=== PATIENT | female | born 1990 | race Caucasian/White ===

== ENCOUNTER 2019-10-12 17:24 | Emergency (ER) | payer MEDICAID, OTHER ==
[~2019-10-12] VITALS: Ht 170.2 cm; Wt 76.9 kg
--- NOTE | 2019-10-12 17:50 | NUR ---
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
--- NOTE | 2019-10-12 18:10 | NUR ---
THIS IS A 28 YO FEMALE COMING IN FOR ABD CRAMPING, SCANT SPOTTING, AND NAUSEA. PATIENT FOUND OUT SHE WAS "A COUPLE WEEKS AGO", MADE APPT AT ENTER SCHEDULED FOR FRIDAY. PATIENT STATES "I HAVE AN IUD IN PLACE, IT'S BEEN THERE FOR 3 YEARS, AND I HAVEN'T HAD A PERIOD FOR 1.5 YEARS". PATIENT C/O RLQ ABD PAIN, 03/15 STATES "IT FEELS LIKE PERIOD CRAMPS". PATIENT DENIES VOMITING OR DIARRHEA, UA SENT TO LAB FROM TRIAGE, VSS, PLACED ON SPO2 MONITOR AND BP CUFF, NAD, FAMILY MEMBER IN ROOM. CALL LIGHT IN REACH. PA TO ROOM
[2019-10-12 18:21] LABS: BASOPHILS # (AUTO) 0.02 x10^3/uL (0-0.1); BASOPHILS % (AUTO) 0 % (0-1); EOSINOPHILS # (AUTO) 0.05 x10^3/uL (0-0.4); EOSINOPHILS % (AUTO) 1 % (1-7); LYMPHOCYTES % (AUTO) 30 % (22-44); MD NO; MEAN CORPUSCULAR HEMOGLOBIN 31.3 pg (27.0-34.8); MEAN CORPUSCULAR HGB CONC 33.9 g/dL (32.4-35.8); MEAN CORPUSCULAR VOLUME 92.3 fL (80-100); MEAN PLATELET VOLUME 7.7 fL (7.4-10.4); MONOCYTES # (AUTO) 0.33 x10^3/uL (0.2-0.8); MONOCYTES % (AUTO) 6 % (2-9); NEUTROPHILS # (AUTO) 3.62 x10^3/uL (1.8-6.8); NEUTROPHILS % (AUTO) 63 % (42-75); PLATELET COUNT 239 x10^3/uL (130-400); RED BLOOD COUNT 4.37 x10^6/uL (3.82-5.3); RED CELL DISTRIBUTION WIDTH 12.7 % (9.6-15.2)
[2019-10-12 18:23] LABS: HCG UR SG 1.029 (1.003-1.030); MICROSCOPIC AUTO
[2019-10-12 18:25] LABS: CULTURE INDICATED? YES
[2019-10-12 19:45] VITALS: BP 108/52
--- NOTE | 2019-10-12 20:33 | NUR ---
Patient discharge instructions. All questions and concerns addressed. Patient ambulatory with a steady gait. Belongings with patient.
== END 2019-10-12 20:36 | disposition home or self-care (01) ==
LOC: ED 18:22
DX: O26.891 Other specified pregnancy related conditions, first trimester (principal); R10.30 Lower abdominal pain, unspecified; Z3A.01 Less than 8 weeks gestation of pregnancy
CPT/HCPCS: 36415; 76801; 81001; 81025; 84702; 85025; 86901; 87086; 99284